=== PATIENT | male | born 1950 | race African-American/Black ===

== ENCOUNTER 2023-11-10 11:24 | Emergency (ER) | payer BC ==
[~2023-11-10] VITALS: Ht 180.3 cm; Wt 98.9 kg
[2023-11-10 11:39] VITALS: BP 145/87; PULSE 67; RESP 16; TEMP 98; O2SAT 99
== END 2023-11-10 13:02 | disposition home or self-care (01) ==
LOC: MED 11:24
DX: L91.8 Other hypertrophic disorders of the skin (principal); Z48.00 Encounter for change or removal of nonsurgical wound dressing; Z79.899 Other long term (current) drug therapy
CPT/HCPCS: 99283